=== PATIENT | female | born 1970 | race Caucasian/White ===

== ENCOUNTER 2025-04-09 19:12 | Emergency (ER) | payer BC | END 2025-04-09 21:54 | disposition home or self-care (01) | LOC: JP.ED 19:12 | DX: M62.830 Muscle spasm of back (principal); I10 Essential (primary) hypertension; E78.00 Pure hypercholesterolemia, unspecified; Z79.82 Long term (current) use of aspirin; Z79.899 Other long term (current) drug therapy | CPT/HCPCS: 99283 ==